=== PATIENT | male | born 1990 | race Caucasian/White ===

== ENCOUNTER 2020-09-10 16:28 | Emergency (ER) | payer OTHER, SELFPAY ==
[~2020-09-10] VITALS: Ht 165.1 cm; Wt 52.3 kg
[~2020-09-10 16:28] MED LIST: BENZ1TAB10 PO; DIPH25 PO; HALO5TAB23 PO; SERT50TA12 PO
[2020-09-10 17:12] VITALS: BP 106/52
[2020-09-10] MEDS ORDERED: IBUPROFEN 400 MG TABLET PO ONE (18:00)
== END 2020-09-10 19:45 | disposition home or self-care (01) ==
LOC: EMS 16:28
DX: M25.562 Pain in left knee (principal); Z59.0 Homelessness; F20.9 Schizophrenia, unspecified

== ENCOUNTER 2020-11-29 08:10 | Emergency (ER) | payer OTHER ==
[~2020-11-29] VITALS: Ht 165.1 cm; Wt 50.0 kg
[~2020-11-29 08:10] MED LIST changes: +SERT-158 PO; -SERT50TA12 PO
[2020-11-29] MEDS ORDERED: IBUPROFEN 600 MG TABLET PO ONE (08:30)
[2020-11-29] MEDS ORDERED: ACETAMINOPHEN 500 MG TABLET PO ONE (08:30)
[2020-11-29] MEDS ORDERED: DOXYCYCLINE HYCLATE 100 MG TABLET PO ONE (08:30)
[2020-11-29] MEDS ORDERED: BACITRACIN 0.9 GM PACKET OINTMENT TP ONE (08:30)
[2020-11-29 08:55] VITALS: BP 115/81
== END 2020-11-29 09:40 | disposition home or self-care (01) ==
LOC: EMS 08:13
DX: L03.115 Cellulitis of right lower limb (principal)
CPT/HCPCS: 65220; 99284; Z7502; Z7610